=== PATIENT | female | born 1985 | race Caucasian/White ===

== ENCOUNTER 2016-12-26 00:25 | Emergency (ER) | payer OTHER | END 2016-12-26 02:32 | disposition home or self-care (01) | LOC: FER 00:25 | DX: S61.211A Laceration without foreign body of left index finger without damage to nail, initial encounter (principal); W26.0XXA Contact with knife, initial encounter; Y92.009 Unspecified place in unspecified non-institutional (private) residence as the place of occurrence of the external cause ==

== ENCOUNTER 2021-06-13 01:06 | Emergency (ER) | payer OTHER | END 2021-06-13 03:31 | disposition home or self-care (01) | LOC: FER 01:06 | DX: S01.01XA Laceration without foreign body of scalp, initial encounter (principal); S09.90XA Unspecified injury of head, initial encounter; Z23 Encounter for immunization; Z88.2 Allergy status to sulfonamides; W01.0XXA Fall on same level from slipping, tripping and stumbling without subsequent striking against object, initial encounter; Y92.830 Public park as the place of occurrence of the external cause | CPT/HCPCS: 70450; 72125; 90715 ==